=== PATIENT | female | born 1935 | race Hispanic/Latino ===

== ENCOUNTER 2017-10-19 04:33 | Emergency (ER) | payer MEDICARE ==
[~2017-10-19 04:33] MED LIST: AEC81 PO; CALC-190 PO; CEPH500C2 PO; CHOL100044 PO; INSU100V12 SQ; LEFL20TA18 PO; LEVO88TA7 PO; PANT40TA25 PO; PRAV40TA PO; PRED10TA23 PO; SERT25TA5 PO
[2017-10-19 05:08] LABS: BASOPHILS % (AUTO) 0.9 % (0.0-5.0); HEMATOCRIT 30.9 % (36-48); LYMPHOCYTES % (AUTO) 15.1 % (21.0-51.0); MEAN CORPUSCULAR HEMOGLOBIN 28.6 pg (27.0-33.0); MEAN CORPUSCULAR HGB CONC 34.4 g/dL (32.0-36.0); MEAN CORPUSCULAR VOLUME 83.3 fL (79-99); MONOCYTES % (AUTO) 8.3 % (3.0-13.0); NEUTROPHILS % (AUTO) 73.7 % (40.0-77.0); PLATELET COUNT (AUTO) 191 K/uL (130-400); RED BLOOD CELL COUNT(AUTO) 3.71 MIL/uL (4.00-5.50); RED CELL DISTRIBUTION WIDTH 14.4 % (11.0-15.5); WHITE BLOOD COUNT (AUTO) 8.1 K/uL (4.8-10.8)
[2017-10-19 05:13] LABS: CREATININE 0.8 mg/dL (0.5-1.5); POTASSIUM 4.2 mmol/L (3.5-5.1)
[2017-10-19 05:25] LABS: ALBUMIN 3.4 g/dL (3.5-5.0); BILIRUBIN,TOTAL 0.6 mg/dL (0.2-1.0); TOTAL PROTEIN, SERUM 7.1 g/dL (6.0-8.3)
[2017-10-19] MEDS ORDERED: OSELTAMIVIR PHOSPHATE 75 MG CAP ONE (06:23)
[2017-10-19 06:54] LABS: APPEARANCE,URINE Cloudy (CLEAR); BILIRUBIN,URINE Negative (NEGATIVE); COLOR,URINE Yellow (YELLOW); GLUCOSE, URINE (UA) Negative (NEGATIVE); KETONES,URINE Negative (NEGATIVE); LEUKOCYTE ESTERASE ,URINE Moderate (NEGATIVE); NITRATE,URINE Positive (NEGATIVE); OCCULT BLOOD,URINE Negative (NEGATIVE); PROTEIN,URINE Negative (NEGATIVE); UROBILINOGEN,URINE 0.2 mg/dL (0.2-1.0)
[2017-10-19 07:15] LABS: BACTERIA,URINE Many /HPF (None Seen); RBC,URINE 0-1 /HPF (0-1); SQUAMOUS EPITHELIAL CELL,UR Few /HPF (0-2)
[2017-10-19 07:16] LABS: MUCUS,URINE Rare LPF (None Seen)
[2017-10-19] MEDS ORDERED: CEFTRIAXONE SODIUM 1 GM ONE (07:27)
[2017-10-19] MEDS ORDERED: SODIUM CHLORIDE 0.9% 100 ML IV ONE (07:27)
== END 2017-10-19 08:46 | disposition home or self-care (01) ==
LOC: EDH 04:33
DX: J10.1 Influenza due to other identified influenza virus with other respiratory manifestations (principal); N30.00 Acute cystitis without hematuria; E11.9 Type 2 diabetes mellitus without complications; E78.5 Hyperlipidemia, unspecified; I10 Essential (primary) hypertension; E07.9 Disorder of thyroid, unspecified; Z88.1 Allergy status to other antibiotic agents; Z88.8 Allergy status to other drugs, medicaments and biological substances
CPT/HCPCS: 36415; 71045; 80053; 81001; 83605; 85025; 87040; 87088; 87186; 87804 ×2; 93005; 96374; 99285; J0696

== ENCOUNTER → 2018-05-11 | Outpatient (CLI) | payer MEDICARE ==
[~2018-05-11] MED LIST changes: -CEPH500C2 PO; +FERR325T22 PO; +FLUT15.88 NS; +INSU100I26 SQ; -LEFL20TA18 PO; +LEVO500T2 PO; +LINA5TAB PO; +LORA10CA9 PO; +LOSA25TA41 PO; +OSEL75 PO; -PRED10TA23 PO; +PRED10TA3 PO
== END | disposition home or self-care (01) ==
LOC: RAH 08:44
PROVIDERS: ATTEND Internal Medicine
DX: R91.8 Other nonspecific abnormal finding of lung field (principal); E03.9 Hypothyroidism, unspecified; E78.2 Mixed hyperlipidemia; Z87.01 Personal history of pneumonia (recurrent)
CPT/HCPCS: 71046

== ENCOUNTER 2018-11-07 21:05 | Observation (INO) | payer MEDICARE ==
[~2018-11-07] VITALS: Ht 162.6 cm; Wt 48.4 kg
[2018-11-07 21:30] LABS: BASOPHILS % (AUTO) 0.2 % (0.0-5.0); EOSINOPHILS % (AUTO) 0.6 % (0.0-8.0); HEMATOCRIT 32.3 % (36-48); LYMPHOCYTES % (AUTO) 9.7 % (21.0-51.0); MEAN CORPUSCULAR HEMOGLOBIN 29.4 pg (27.0-33.0); MEAN CORPUSCULAR HGB CONC 33.6 g/dL (32.0-36.0); MEAN CORPUSCULAR VOLUME 87.4 fL (79-99); MONOCYTES % (AUTO) 5.8 % (3.0-13.0); NEUTROPHILS % (AUTO) 83.7 % (40.0-77.0); PLATELET COUNT (AUTO) 153 K/uL (130-400); RED BLOOD CELL COUNT(AUTO) 3.69 MIL/uL (4.00-5.50); RED CELL DISTRIBUTION WIDTH 15.2 % (11.0-15.5); WHITE BLOOD COUNT (AUTO) 8.2 K/uL (4.8-10.8)
[2018-11-07] MEDS ORDERED: ONDANSETRON HCL 4 MG/2 ML VIAL ONE (21:36)
[2018-11-07] MEDS ORDERED: KETOROLAC TROMETHAMINE 15MG/ML ONE (21:37)
[2018-11-07] MEDS ORDERED: CEFTRIAXONE SODIUM 2 GM VIAL ONE (21:37)
[2018-11-07] MEDS ORDERED: SODIUM CHLORIDE 0.9% 500ML 500 ML IV ONE (21:38)
[2018-11-07 21:39] LABS: CREATININE 0.8 mg/dL (0.5-1.5); POTASSIUM 4.2 mmol/L (3.5-5.1)
[2018-11-07 21:49] LABS: BILIRUBIN,DIRECT 0.1 mg/dL (0.0-0.3); BILIRUBIN,TOTAL 0.6 mg/dL (0.2-1.0); TOTAL PROTEIN, SERUM 7.1 g/dL (6.0-8.3)
[2018-11-07 22:19] LABS: APPEARANCE,URINE CLOUDY (CLEAR); BILIRUBIN,URINE NEGATIVE (NEGATIVE); COLOR,URINE YELLOW (YELLOW); GLUCOSE, URINE (UA) NEGATIVE (NEGATIVE); KETONES,URINE NEGATIVE (NEGATIVE); LEUKOCYTE ESTERASE ,URINE SMALL (NEGATIVE); NITRATE,URINE POSITIVE (NEGATIVE); OCCULT BLOOD,URINE NEGATIVE (NEGATIVE); PH,URINE 6.5 (5.0-8.0); PROTEIN,URINE NEGATIVE (NEGATIVE); UROBILINOGEN,URINE 0.2 mg/dL (0.2-1.0)
[2018-11-07 22:25] LABS: BACTERIA,URINE Moderate /HPF (None Seen); RBC,URINE 0-1 /HPF (0-1); SQUAMOUS EPITHELIAL CELL,UR Few /HPF (0-2)
[2018-11-07] MEDS ORDERED: ONDANSETRON HCL 4 MG/2 ML VIAL IVP PRN (23:45)
[2018-11-07] MEDS ORDERED: MORPHINE SULFATE 2 MG/ML 1ML SYG IVP PRN (23:45)
[2018-11-07] MEDS ORDERED: SODIUM CHLORIDE 0.9% 1000ML 1,000 ML IV SCH (23:45)
[2018-11-08 00:29] LABS: INR 1.06 (0.85-1.15); PARTIAL THROMBOPLASTIN TIME 29.4 SEC (26.3-35.5); PROTHROMBIN TIME 11.1 SEC (9.6-11.6)
[2018-11-08 01:03] VITALS: BP 136/61
[2018-11-08 03:25] VITALS: BP 120/58
[2018-11-08] MEDS: METRONIDAZOLE 500MG/100ML BAG 100 ML IVPB SCH ×2 (05:43)
[2018-11-08] MEDS: SODIUM CHLORIDE 0.9% 1000ML 1,000 ML IV SCH (07:29)
[2018-11-08] MEDS ORDERED: ONDANSETRON HCL 4 MG/2 ML VIAL IV PRN (07:30)
[2018-11-08] MEDS ORDERED: MAG HYDROX/AL HYDROX/SIMETH ES 30 ML SUSP UDCUP PO PRN (07:30)
[2018-11-08] MEDS ORDERED: ACETAMINOPHEN 325 MG TAB PO PRN ×2 (07:30)
[2018-11-08] MEDS ORDERED: LIDOCAINE HCL-MPF 1% 2ML VIAL IVP PRN (07:45)
[2018-11-08] MEDS ORDERED: POTASSIUM CHLORIDE 20MEQ/100ML 100 ML IV PRN (07:45)
[2018-11-08] MEDS ORDERED: POTASSIUM CHLORIDE 10% ELIXIR 20 MEQ/15 ML UDCUP PO PRN (07:45)
[2018-11-08] MEDS ORDERED: GLUCAGON 1MG KIT 1 MG ML IM PRN (07:45)
[2018-11-08] MEDS ORDERED: DEXTROSE 50%-WATER 50 ML DISP.SYRIN IV PRN (07:45)
[2018-11-08] MEDS ORDERED: POTASSIUM CHLORIDE 20 MEQ ERTAB PO PRN (07:45)
[2018-11-08 08:00] VITALS: BP 129/58
--- NOTE | 2018-11-08 08:00 | NUR ---
PT . AAO X 3 . WEAK BUT IS ABLE TO FOCUS WITH HER CARE. STATED THAT THE PAIN TO HER ABD COMES AND GOES. ASK WHEN HER LAST BM STATED THAT SHE HAD ONE VERY HARD ONE. FAMILY AT THE BEDSIDE , REVIEW PLAN OF CARE. HOB UP. FALL RISK AND CALL LIGHT REVIEW. . BED LEVEL DOWN.
[2018-11-08] MEDS: METRONIDAZOLE 500 MG TABLET PO SCH ×2 (08:21→20:48)
[2018-11-08] MEDS: ENOXAPARIN SODIUM 30 MG/0.3 ML SQ SCH (08:21)
[2018-11-08] MEDS: FAMOTIDINE 20MG TAB 20 MG TAB PO SCH (08:21)
[2018-11-08] MEDS ORDERED: PANT40TA25 PO (08:34)
[2018-11-08] MEDS ORDERED: LEVO88TA7 PO (08:34)
[2018-11-08] MEDS ORDERED: LOSA25TA41 PO (08:34)
[2018-11-08] MEDS ORDERED: FLUT16H NASAL (08:34)
[2018-11-08] MEDS ORDERED: SERT25TA5 PO (08:34)
[2018-11-08] MEDS ORDERED: CYCL30DR OP (08:42)
[2018-11-08] MEDS ORDERED: LEFL10TA15 PO (08:42)
[2018-11-08] MEDS ORDERED: LIFI1DRO OP (08:42)
[2018-11-08] MEDS ORDERED: ESTR42.53 TP (08:42)
[2018-11-08] MEDS ORDERED: ALBU8.5H8 IH (08:42)
[2018-11-08] MEDS ORDERED: CYAN10007 IJ (08:42)
[2018-11-08] MEDS ORDERED: BISACODYL 10 MG SUPP.RECT RC ONE ×2 (11:15→21:45)
[2018-11-08] MEDS: INSULIN HUMULIN R 100 UNIT/ML 3ML SQ SCH ×3 (11:30→20:49)
[2018-11-08 12:00] VITALS: BP_SYST 160; BP_SYST 177; BP_DIAS 78; BP_DIAS 79
--- NOTE | 2018-11-08 13:50 | NUR ---
DR. OJEDA HERE UPDATE OF .PT HAVING . A BM AFTER GIVEN . A SUPP . BUT CONSTIPATED . , WITH [place]DERS [place] [facility] . CONT WITH CARE , AND AM LABS . .
[2018-11-08] MEDS: MAGNESIUM HYDROXIDE 30 ML/UDCUP PO PRN ×2 (14:36→20:50)
--- NOTE | 2018-11-08 15:04 | NUR ---
DCP CM met with pt discussed dc plans. Pt is assist with ADL's, lives at home alone, daughter lives close by. Pt has a provider and goes to [facility] Tue-Tue. Denies any other equipments/services. Pt feels safe to go back home, daughter able to assist with transportation and needs as necessary. DC plan to home once stable. CM to cont to follow up. Addendum: 11/08/18 at 1506 by DUSTIN MARTINEZ LVN CM Amended: Links added.
[2018-11-08 16:00] VITALS: BP 180/69
[2018-11-08 20:00] VITALS: BP 171/72
[2018-11-08] MEDS ORDERED: CEFTRIAXONE SODIUM 1 GM IVP SCH (21:00)
[2018-11-08] MEDS ORDERED: LACTULOSE 20 GM/30 ML UDCUP PO PRN (22:00)
[2018-11-09] VITALS: BP 146/61
[2018-11-09] MEDS: SODIUM CHLORIDE 0.9% 1000ML 1,000 ML IV SCH (03:45)
[2018-11-09 04:00] VITALS: BP 177/77
[2018-11-09 05:46] LABS: HEMATOCRIT 32.1 % (36-48); MEAN CORPUSCULAR HEMOGLOBIN 29.6 pg (27.0-33.0); MEAN CORPUSCULAR HGB CONC 33.8 g/dL (32.0-36.0); MEAN CORPUSCULAR VOLUME 87.6 fL (79-99); PLATELET COUNT (AUTO) 144 K/uL (130-400); RED BLOOD CELL COUNT(AUTO) 3.67 MIL/uL (4.00-5.50); RED CELL DISTRIBUTION WIDTH 15.4 % (11.0-15.5); WHITE BLOOD COUNT (AUTO) 4.1 K/uL (4.8-10.8)
[2018-11-09 05:57] LABS: CREATININE 0.8 mg/dL (0.5-1.5); POTASSIUM 3.9 mmol/L (3.5-5.1)
[2018-11-09] MEDS: INSULIN HUMULIN R 100 UNIT/ML 3ML SQ SCH (06:22)
[2018-11-09] MEDS ORDERED: METR-172 PO (06:57)
[2018-11-09 07:00] VITALS: BP 188/79
[2018-11-09] MEDS: FAMOTIDINE 20MG TAB 20 MG TAB PO SCH (09:10)
[2018-11-09] MEDS: ENOXAPARIN SODIUM 30 MG/0.3 ML SQ SCH (09:10)
[2018-11-09] MEDS: METRONIDAZOLE 500 MG TABLET PO SCH (09:10)
--- NOTE | 2018-11-09 09:25 | NUR ---
DR OJEDA CALLED TO CHECK STATUS OF PATIENT. INFORMED THAT PATIENT DOES NOT HAVE ANY PAIN AND +BM X2 THIS MORNING. STATES PATIENT IS OKAY FOR DISCHARGE. DR. OJEDA TO COME BY TO PUT IN ORDER.
[2018-11-09 11:00] VITALS: BP 179/73
--- NOTE | 2018-11-09 11:17 | NUR ---
PT WITH PATIENT AT THIS TIME.
--- NOTE | 2018-11-09 13:03 | NUR ---
INSTRUCTIONS DISCHARGE INSTRUCTIONS READ AND EXPLAINED TO PATIENT AND DAUGHTER AT BEDSIDE.PRESCRIPTION FOR METRONIDAZOLE 500MG HANDED TO DAUGHTER. QUESTIONS INVITED AND ANSWERED.
== END 2018-11-09 13:20 | disposition home or self-care (01) ==
LOC: EDH 21:05 → EDHIP 22:37 → 3DH 11-08 00:42
PROVIDERS: ADMIT Internal Medicine; ATTEND Internal Medicine
DX: K52.9 Noninfective gastroenteritis and colitis, unspecified (principal); D63.8 Anemia in other chronic diseases classified elsewhere; I13.10 Hypertensive heart and chronic kidney disease without heart failure, with stage 1 through stage 4 chronic kidney disease, or unspecified chronic kidney disease; N18.2 Chronic kidney disease, stage 2 (mild); E03.9 Hypothyroidism, unspecified; E11.21 Type 2 diabetes mellitus with diabetic nephropathy; E11.22 Type 2 diabetes mellitus with diabetic chronic kidney disease; E11.42 Type 2 diabetes mellitus with diabetic polyneuropathy; E11.65 Type 2 diabetes mellitus with hyperglycemia; E53.8 Deficiency of other specified B group vitamins; H40.9 Unspecified glaucoma; H81.09 Meniere's disease, unspecified ear; J30.9 Allergic rhinitis, unspecified; J38.3 Other diseases of vocal cords; J44.9 Chronic obstructive pulmonary disease, unspecified; K21.9 Gastro-esophageal reflux disease without esophagitis; K59.00 Constipation, unspecified; M06.9 Rheumatoid arthritis, unspecified; K57.30 Diverticulosis of large intestine without perforation or abscess without bleeding; M19.90 Unspecified osteoarthritis, unspecified site; M79.7 Fibromyalgia; M81.0 Age-related osteoporosis without current pathological fracture; N39.3 Stress incontinence (female) (male); F32.9 Major depressive disorder, single episode, unspecified; Z79.4 Long term (current) use of insulin; Z79.82 Long term (current) use of aspirin; Z87.440 Personal history of urinary (tract) infections; Z90.49 Acquired absence of other specified parts of digestive tract; Z82.49 Family history of ischemic heart disease and other diseases of the circulatory system; Z83.3 Family history of diabetes mellitus; Z79.899 Other long term (current) drug therapy
CPT/HCPCS: 36415 ×3; 71045; 74176; 80048 ×2; 80076; 81001; 82550; 82948 ×6; 83605; 83690; 84484; 85025; 85027; 85610; 85730; 87040 ×2; 93005; 96361; 96365; 96372 ×2; 96375; 97039; 97116 ×2; 97161; 99284; G0378 ×29; G8978; G8979; G8980; G8981; G8982; G8983; J0696; J1650 ×2; J1885; J2405; J3490; J7040

== ENCOUNTER 2019-02-25 04:45 | Emergency (ER) | payer MEDICARE ==
[~2019-02-25 04:45] MED LIST changes: +ALBU8.5H8 IH; -CHOL100044 PO; +CYAN10007 IJ; +CYCL30DR OP; +ESTR42.53 TP; -FLUT15.88 NS; +FLUT16H NASAL; -INSU100I26 SQ; -INSU100V12 SQ; +LEFL10TA15 PO; -LEVO500T2 PO; +LIFI1DRO OP; +METR-172 PO; -OSEL75 PO; -PRED10TA3 PO
[2019-02-25] MEDS ORDERED: MECLIZINE HCL 25 MG TABLET ONE (05:13)
[2019-02-25 05:18] LABS: APPEARANCE,URINE Cloudy (CLEAR); BILIRUBIN,URINE Negative (NEGATIVE); COLOR,URINE Yellow (YELLOW); GLUCOSE, URINE (UA) Negative (NEGATIVE); KETONES,URINE Negative (NEGATIVE); LEUKOCYTE ESTERASE ,URINE Large (NEGATIVE); NITRATE,URINE Negative (NEGATIVE); OCCULT BLOOD,URINE Negative (NEGATIVE); PROTEIN,URINE Negative (NEGATIVE); UROBILINOGEN,URINE 0.2 mg/dL (0.2-1.0)
[2019-02-25 05:20] LABS: BASOPHILS % (AUTO) 1.4 % (0.0-5.0); EOSINOPHILS % (AUTO) 7.4 % (0.0-8.0); HEMATOCRIT 34.4 % (36-48); LYMPHOCYTES % (AUTO) 20.6 % (21.0-51.0); MEAN CORPUSCULAR HEMOGLOBIN 30.3 pg (27.0-33.0); MEAN CORPUSCULAR HGB CONC 33.8 g/dL (32.0-36.0); MEAN CORPUSCULAR VOLUME 89.5 fL (79-99); NEUTROPHILS % (AUTO) 61.6 % (40.0-77.0); NUCLEATED RED BLOOD CELLS 0.1 % (0.0-0.19); PLATELET COUNT (AUTO) 173 K/uL (130-400); RED BLOOD CELL COUNT(AUTO) 3.84 MIL/uL (4.00-5.50); RED CELL DISTRIBUTION WIDTH 13.5 % (11.0-15.5); WHITE BLOOD COUNT (AUTO) 4.7 K/uL (4.8-10.8)
[2019-02-25 05:26] LABS: CREATININE 0.9 mg/dL (0.5-1.5)
[2019-02-25 05:31] LABS: ALBUMIN 3.1 g/dL (3.5-5.0); BILIRUBIN,TOTAL 0.4 mg/dL (0.2-1.0); TOTAL PROTEIN, SERUM 7.6 g/dL (6.0-8.3)
[2019-02-25 05:34] LABS: BACTERIA,URINE Many /HPF (None Seen); MUCUS,URINE None Seen LPF (None Seen); RBC,URINE 0-1 /HPF (0-1); SQUAMOUS EPITHELIAL CELL,UR None Seen /HPF (0-2)
[2019-02-25] MEDS ORDERED: CEFTRIAXONE SODIUM 1 GM ONE (05:56)
== END 2019-02-25 06:37 | disposition home or self-care (01) ==
LOC: EDH 04:45
DX: N39.0 Urinary tract infection, site not specified (principal); E11.9 Type 2 diabetes mellitus without complications; R42 Dizziness and giddiness; E78.5 Hyperlipidemia, unspecified; I10 Essential (primary) hypertension; E07.9 Disorder of thyroid, unspecified; Z88.1 Allergy status to other antibiotic agents; Z88.8 Allergy status to other drugs, medicaments and biological substances
CPT/HCPCS: 36415; 80053; 81001; 82550; 84484; 85025; 87077; 87088; 87186; 93005; 96374; 96375; 99285; J0696

== ENCOUNTER → 2019-05-04 | Outpatient (CLI) | payer MEDICARE | END | disposition home or self-care (01) | LOC: OIH 15:58 | PROVIDERS: ATTEND Internal Medicine | DX: M17.12 Unilateral primary osteoarthritis, left knee (principal) | CPT/HCPCS: 73560 ==

== ENCOUNTER → 2019-09-04 | Outpatient (CLI) | payer MEDICARE | END | disposition home or self-care (01) | LOC: OIH 13:16 | PROVIDERS: ATTEND Internal Medicine | DX: Z04.3 Encounter for examination and observation following other accident (principal); M79.605 Pain in left leg; S80.12XD Contusion of left lower leg, subsequent encounter; X58.XXXD Exposure to other specified factors, subsequent encounter | CPT/HCPCS: 73590 ==

== ENCOUNTER → 2019-09-11 | Outpatient (CLI) | payer MEDICARE | END | disposition home or self-care (01) | LOC: RAH 11:28 | PROVIDERS: ATTEND Internal Medicine | DX: G93.89 Other specified disorders of brain (principal) | CPT/HCPCS: 70450 ==

== ENCOUNTER 2020-05-03 11:05 | Emergency (ER) | payer MEDICARE ==
[~2020-05-03 11:05] MED LIST changes: -PANT40TA25 PO; +PANT40TA54 PO; +SERT-438 PO; -SERT25TA5 PO
[2020-05-03 11:47] LABS: BASOPHILS % (AUTO) 1.5 % (0.0-5.0); EOSINOPHILS % (AUTO) 4.4 % (0.0-8.0); HEMATOCRIT 33.8 % (36-48); LYMPHOCYTES % (AUTO) 33.1 % (21.0-51.0); MEAN CORPUSCULAR HEMOGLOBIN 28.7 pg (27.0-33.0); MEAN CORPUSCULAR HGB CONC 33.1 g/dL (32.0-36.0); MEAN CORPUSCULAR VOLUME 86.7 fL (79-99); MONOCYTES % (AUTO) 9.6 % (3.0-13.0); NEUTROPHILS % (AUTO) 51.2 % (40.0-77.0); PLATELET COUNT (AUTO) 204 K/uL (130-400); WHITE BLOOD COUNT (AUTO) 4.8 K/uL (4.8-10.8)
[2020-05-03 11:59] LABS: CREATININE 0.7 mg/dL (0.5-1.5); POTASSIUM 5.5 mmol/L (3.5-5.1)
[2020-05-03 12:02] LABS: INR 1.04 (0.85-1.15); PROTHROMBIN TIME 11.1 SEC (9.6-11.6)
[2020-05-03 12:03] LABS: PARTIAL THROMBOPLASTIN TIME 22.6 SEC (26.3-35.5)
[2020-05-03 12:04] LABS: ALBUMIN 3.2 g/dL (3.5-5.0); BILIRUBIN,TOTAL 0.8 mg/dL (0.2-1.0); TOTAL PROTEIN, SERUM 7.7 g/dL (6.0-8.3)
[2020-05-03] MEDS ORDERED: SODIUM CHLORIDE 0.9% 1000ML 1,000 ML IV ONE (12:18)
[2020-05-03 12:28] LABS: MAGNESIUM 1.9 mg/dL (1.80-2.40); PHOSPHORUS 3.5 mg/dL (2.5-4.9)
[2020-05-03 12:56] LABS: CRP QUANTITATIVE 3.7 mg/L (0.00-9.0)
== END 2020-05-03 14:56 | disposition home or self-care (01) ==
LOC: EDH 11:05
DX: U07.1 COVID-19 (principal); I10 Essential (primary) hypertension; E78.5 Hyperlipidemia, unspecified; E11.9 Type 2 diabetes mellitus without complications; E03.9 Hypothyroidism, unspecified; Z79.899 Other long term (current) drug therapy; Z88.1 Allergy status to other antibiotic agents; Z88.6 Allergy status to analgesic agent; Z88.8 Allergy status to other drugs, medicaments and biological substances; F32.9 Major depressive disorder, single episode, unspecified
CPT/HCPCS: 36415; 71045; 80053; 82550; 83735; 84100; 84145; 84484; 85025; 85378; 85610; 85730; 86140; 87426; 99284; J7030